=== PATIENT | female | born 1990 | race Caucasian/White ===

== ENCOUNTER 2021-09-17 14:43 | Outpatient (CLI) | payer OTHER, SELFPAY ==
--- NOTE | ~2021-09-17 | US_ITS ---
US breast BI complete DATE: 09/17/2021 15:16 INDICATION: Bilateral breast pain TECHNIQUE: Complete ultrasound of both breasts including all 4 quadrants and subareolar areas COMPARISON: None FINDINGS: No suspicious mass or shadowing, cyst or other significant sonographic finding of either br east is noted. IMPRESSION: BI-RADS Category 1: Negative Reviewed, dictated and finalized at Location A. Reviewed, dictated and finalized at location A.
== END 2021-09-17 14:44 | disposition home or self-care (01) ==
LOC: ANHIMG 14:46
PROVIDERS: Visit Provider Obstetrics & Gynecology
DX: N64.4 Mastodynia (principal)
CPT/HCPCS: 76641

== ENCOUNTER 2023-05-13 13:59 | Observation (INO) | payer OTHER, SELFPAY ==
--- NOTE | 2023-05-13 14:10 | OBADM ---
This patient, Alejandra Melvin, admitted to the OB room Labor/Delivery/Recovery 105 for observation. Patient/family oriented to hospital policies and general routines including ID bracelet, bed and alarms, visiting hours, pain management, procedures, bathroom and other care routines, personal items, smoking policy, room service/diet, and visiting hours. Patient/Family are encouraged to report perceived risks to care and to ask questions if they do not understand what they are told or what they should do.
[2023-05-13 14:15] VITALS: BP 136/84; PULSE 96
[2023-05-13 14:30] VITALS: BP 132/87; PULSE 86
[2023-05-13 14:45] VITALS: BP 125/88; PULSE 89
[2023-05-13 15:00] VITALS: BP 125/87; PULSE 84
[2023-05-13 15:15] VITALS: BP 123/82; PULSE 81
--- NOTE | 2023-05-28 02:22 | PM.OBTRLD ---
OB - Triage/Final Diagnosis Visit Information Comments/Additional reasons for admission: I have assessed the risk for this patient, Alejandra Melvin, and determined that she would benefit from observation care. Final Diagnosis (1) False labor: Code(s): O47.9 - False labor, unspecified Status: Acute
== END 2023-05-13 17:03 | disposition home or self-care (01) ==
PROVIDERS: Admitting Provider Obstetrics & Gynecology; PCP Internal Medicine; Visit Provider Obstetrics & Gynecology
DX: O47.1 False labor at or after 37 completed weeks of gestation (principal); Z3A.38 38 weeks gestation of pregnancy
CPT/HCPCS: G0378; G0379

== ENCOUNTER 2023-05-17 22:39 | Observation (INO) | payer OTHER, SELFPAY ==
[2023-05-18 00:41] VITALS: BMI 37.7
--- NOTE | 2023-05-18 00:41 | OBADM ---
This patient, Alejandra Melvin, admitted to the OB room Labor/Delivery/Recovery 106 for observation. Patient/family oriented to hospital policies and general routines including ID bracelet, bed and alarms, visiting hours, pain management, procedures, bathroom and other care routines, personal items, smoking policy, room service/diet, and visiting hours. Patient/Family are encouraged to report perceived risks to care and to ask questions if they do not understand what they are told or what they should do.
--- NOTE | 2023-05-18 07:15 | PM.OBTRLD ---
OB - Triage/Final Diagnosis Visit Information Date of evaluation: 05/17/23 Reason for evaluation: threatened labor Comments/Additional reasons for admission: I have assessed the risk for this patient, Alejandra Melvin, and determined that she would benefit from observation care.
== END 2023-05-18 00:51 | disposition home or self-care (01) ==
PROVIDERS: Admitting Provider Obstetrics & Gynecology; PCP Internal Medicine; Visit Provider Obstetrics & Gynecology
DX: O47.1 False labor at or after 37 completed weeks of gestation (principal); Z3A.39 39 weeks gestation of pregnancy
CPT/HCPCS: G0378; G0379

== ENCOUNTER 2023-05-28 11:40 | Outpatient (RCR) | payer OTHER, SELFPAY ==
--- NOTE | ~2023-05-28 | US_ITS ---
EXAMINATION: US OB limited DATE: 05/28/2023 12:56 INDICATION: Amniotic fluid index assessment, postdates TECHNIQUE: Real-time ultrasound of the pelvis was performed. The interpreting radiologist was not pre sent for the study. COMPARISON: None. FINDINGS: There is a single living fetus in vertex presentation. The placenta is posterior. car diac activity and movement are noted. heart rate is 131 beats per minute (bpm). The amnio tic fluid index is 9.2 cm which is normal (normal range: 7.1 cm to 21.4 cm). IMPRESSION: 1. Single living fetus in vertex presentation. 2. Normal amniotic fluid index. Reviewed, dictated and finalized at location L.
[2023-05-28 13:13] VITALS: BP 139/91; PULSE 81
== END 2023-07-13 12:43 | disposition home or self-care (01) ==
LOC: ANHOBOP 11:40
PROVIDERS: PCP Internal Medicine; Visit Provider Obstetrics & Gynecology
DX: O48.0 Post-term pregnancy (principal); Z3A.40 40 weeks gestation of pregnancy
CPT/HCPCS: 59025; 76815

== ENCOUNTER 2023-06-02 02:36 | Inpatient (IN) | payer OTHER, SELFPAY ==
[2023-06-02] VITALS (128 sets, daily range): BP systolic 92–157; BP diastolic 40–136; PULSE 74–125; RESP 15–18; TEMP 36.1–37.5; O2SAT 97–100; BMI 38.7
--- NOTE | 2023-06-02 03:22 | LDADM ---
This patient, Alejandra Melvin, was admitted to Labor/Delivery/Recovery 106 on 06/02/23 at 02:36. Plans for labor, pain management and were discussed with patient. Patient/family oriented to hospital policies and general routines including ID bracelet, bed and alarms, visiting hours, pain management, procedures, bathroom and other care routines, personal items, smoking policy, room service/diet and guest tray routines, security routines, and visiting hours. Patient/Family are encouraged to report perceived risks to care and to ask questions if they do not understand what they are told or what they should do. See OBIX for further documentation.
[2023-06-02 03:35] LABS: Basophils Absolute Auto 0.1 K/mm3 (0.0-0.1); Basophils Percent Auto 0.5 % (0.2-1.2); Eosinophils Absolute Auto 0.1 K/mm3 (0-0.3); Eosinophils Percent Auto 1.3 % (0-4.4); Hematocrit 37.2 % (37.0-47.0); Hemoglobin 12.7 g/dL (12.0-15.0); Immature Granulocyte Absolute 0.03 K/mm3 (0.00-0.031); Immature Granulocyte Percent A 0.3 % (0-0.5); Lymphocytes Absolute Auto 3.24 K/mm3 (0.9-3.2); Lymphocytes Percent Auto 30.4 % (18.3-44.2); Mean Corpuscular HGB Conc 34.1 g/dl (32-36); Mean Corpuscular Hemoglobin 30.9 pg (26-34); Mean Corpuscular Volume 90.5 fl (80-100); Mean Platelet Volume 11.3 fl (7.4-10.4); Monocytes Absolute Auto 0.7 K/mm3 (0.1-0.6); Monocytes Percent Auto 6.1 % (2.6-8.5); Neutrophils Absolute Auto 6.5 K/mm3 (1.3-6.7); Neutrophils Percent Auto 61.4 % (45.5-73.1); Platelet Count Result 237 k/mm3 (150-375); Red Blood Count 4.11 M/mm3 (4.2-5.4); White Blood Count 10.7 K/mm3 (4.5-10.0)
[2023-06-02] MEDS: LACTATED RINGERS 1,000 ML 125 ML IV CONT ×2 (03:58→07:45)
[2023-06-02] MEDS: ceFAZolin 2 GM/D5W 50 ML 2 GM/50 ML BAG IVPB (04:00)
--- NOTE | 2023-06-02 06:50 | WPDANESEPP ---
Anes - Eval Pre Procedure Procedure: labor epidural Date/Time: 06/02/23 06:50 Pre Op Diagnosis: leaking Patient Data Age: 32 Gender: F Height: Weight: Last Vital Signs Temp 36.6 C 06/02/23 04:00 Pulse 94 06/02/23 06:45 Resp 18 06/02/23 04:00 BP 154/89 H 06/02/23 06:45 Pulse Ox 100 06/02/23 06:48 O2 Del Method Room Air 06/02/23 03:20 Allergies Allergy/AdvReac Type Severity Reaction Status Date / Time Penicillins Allergy HIVES,TIGHT Verified 04/24/23 13:44 THROAT Sulfa (Sulfonamide Allergy HIVES Verified 04/24/23 13:44 Antibiotics) TIGHT THROAT Home Medications Medication Instructions Recorded Confirmed Type albuterol sulfate 90 mcg/actuation 2 puff inhalation QID PRN Wheezing 04/24/23 04/24/23 History aerosol inhaler prenat.vits,jonathon,[id number] 1 tablet PO DAILY 04/24/23 04/24/23 History Laboratory Tests 06/02/23 03:13 WBC 10.7 H K/mm3 (4.5-10.0) RBC 4.11 L M/mm3 (4.2-5.4) Hgb 12.7 g/dL (12.0-15.0) Hct 37.2 % (37.0-47.0) MCV 90.5 fl (80-100) MCH 30.9 pg (26-34) MCHC 34.1 g/dl (32-36) RDW 14.0 % (11.5-14.5) Plt Count 237 k/mm3 (150-375) MPV 11.3 H fl (7.4-10.4) Immature Gran % (Auto) 0.3 % (0-0.5) Neut % (Auto) 61.4 % (45.5-73.1) Lymph % (Auto) 30.4 % (18.3-44.2) [place] % (Auto) 6.1 % (2.6-8.5) Eos % (Auto) 1.3 % (0-4.4) Baso % (Auto) 0.5 % (0.2-1.2) Lymph # (Auto) 3.24 H K/mm3 (0.9-3.2) [place] # (Auto) 0.7 H K/mm3 (0.1-0.6) Eos # (Auto) 0.1 K/mm3 (0-0.3) Baso # (Auto) 0.1 K/mm3 (0.0-0.1) Abs Immat Gran (auto) 0.03 K/mm3 (0.00-0.031) Absolute Neuts (auto) 6.5 K/mm3 (1.3-6.7) Absolute Nucleated RBC 0.0 K/mm3 (0.0-0.012) Nucleated RBC % 0.0 % (0.0-0.2) RPR Pending Blood Type O Positive Antibody Screen Negative Patient hx anesthesia problems: none Family hx anesthesia problems: none Results Review: All pre-operative results and documents have been reviewed as part of the pre-operative evaluation. [facility] Past Medical History Medical History (Updated 06/02/23 @ 06:51 by Constance Feliz CRNA) Asthma Eczema Irregular heart beat Migraine Family History Family History Sibling Neoplasm of brain in pediatric patient Seizures Social History Social History Smoking status: Never smoker Substance use: never Lack of Transportation: No Lack of Food: Never True Current Housing: I Have Housing Concerned About Future Housing: No Difficulty Paying Gas/Electric Bills: No Difficulty Paying for Meds: No Currently Unemployed: No Education: Associate Degree Difficulty w/ Childcare or Family Care: No Spiritual care concerns: No Exam Day of Procedure 06/02/23 06:50 Patient weight: obese Heart: regular rate and rhythm Lungs: clear to auscultation Airway: Mallampati scale Neurological: alert and oriented
[2023-06-02] MEDS: SODIUM CHLORIDE 0.9% IV 300 ML 600 ML I-UTERINE (08:03)
[2023-06-02] MEDS: TERBUTALINE SULFATE 1 MG/ML VIAL 0.25 MG SUB-Q (08:40)
--- NOTE | 2023-06-02 09:29 | PM.IMHP ---
H&P: HPI History of Present Illness Date/Time: 06/02/23 09:29 Chief Complaint: Ashanti shipman Narrative: 32 y/o G1 at 41 3/7 weeks who presented after a gush of fluid. SROM with meconium-stained fluid noted, labor diagnosed. She received an epidural for pain control and Ancef for GBS colonization. Now having FHR decelerations which have not responded adequately to IVF, position change, amnioinfusion, and terbutaline. I have offered primary . Review of Systems Review of Systems: All systems reviewed & are unremarkable except as noted in HPI and below PMFSH Past Medical History Medical History (Updated 06/02/23 @ 09:33 by Pb Sánchez MD) Asthma Eczema Irregular heart beat Migraine Surgical History Surgical History History of appendectomy Family History Family History Sibling Neoplasm of brain in pediatric patient Seizures Social History Social History Smoking status: Never smoker Substance use: never Lack of Transportation: No Lack of Food: Never True Current Housing: I Have Housing Concerned About Future Housing: No Difficulty Paying Gas/Electric Bills: No Difficulty Paying for Meds: No Currently Unemployed: No Education: Associate Degree Difficulty w/ Childcare or Family Care: No Spiritual care concerns: No Meds Home Medications and Allergies Home Medications Medication Instructions Recorded Confirmed Type albuterol sulfate 90 mcg/actuation 2 puff inhalation QID PRN Wheezing 04/24/23 04/24/23 History aerosol inhaler prenat.vits,jonathon,[id number] 1 tablet PO DAILY 04/24/23 04/24/23 History Allergies Allergy/AdvReac Type Severity Reaction Status Date / Time Penicillins Allergy HIVES,TIGHT Verified 04/24/23 13:44 THROAT Sulfa (Sulfonamide Allergy HIVES Verified 04/24/23 13:44 Antibiotics) TIGHT THROAT Vital Signs Vital Signs - 24 hr 06/02/23 03:30 06/02/23 03:31 06/02/23 04:00 Temperature 36.6 C Pulse Rate 84 84 Respiratory Rate 18 Blood Pressure 151/96 H 143/98 H 149/118 H Pulse Oximetry Oxygen Delivery 06/02/23 04:02 06/02/23 04:15 06/02/23 04:18 Temperature Pulse Rate 90 88 83 Respiratory Rate Blood Pressure 150/89 H 156/95 H 143/91 H Pulse Oximetry Oxygen Delivery 06/02/23 04:30 06/02/23 04:45 06/02/23 05:00 Temperature Pulse Rate 113 H 91 74 Respiratory Rate Blood Pressure 154/98 H 135/88 145/97 H Pulse Oximetry Oxygen Delivery 06/02/23 05:15 06/02/23 05:30 06/02/23 05:45 Temperature Pulse Rate 75 104 H 94 Respiratory Rate Blood Pressure 141/106 H 150/104 H 133/96 H Pulse Oximetry Oxygen Delivery 06/02/23 06:00 06/02/23 06:15 06/02/23 06:30 Temperature Pulse Rate 89 90 78 Respiratory Rate Blood Pressure 128/89 125/93 H 131/85 Pulse Oximetry Oxygen Delivery 06/02/23 06:45 06/02/23 06:48 06/02/23 06:52 Temperature Pulse Rate 94 104 H Respiratory Rate Blood Pressure 154/89 H 142/101 H Pulse Oximetry 100 Oxygen Delivery 06/02/23 06:53 06/02/23 06:58 06/02/23 07:03 Temperature Pulse Rate 97 Respiratory Rate Blood Pressure 142/102 H Pulse Oximetry 99 100 99 Oxygen Delivery 06/02/23 07:07 06/02/23 07:08 06/02/23 07:09 Temperature Pulse Rate 88 98 Respiratory Rate Blood Pressure 133/91 H 150/90 H Pulse Oximetry 98 Oxygen Delivery 06/02/23 07:11 06/02/23 07:13 06/02/23 07:14 Temperature Pulse Rate 89 83 99 Respiratory Rate Blood Pressure 135/85 129/79 131/94 H Pulse Oximetry 99 Oxygen Delivery 06/02/23 07:16 06/02/23 07:18 06/02/23 07:20 Temperature Pulse Rate 97 101 H 98 Respiratory Rate Blood Pressure 132/77 129/83 128/74 Pulse Oximetry 99 Oxygen Delivery
[2023-06-02] MEDS: AZITHROMYCIN 500 MG/NS 250 ML 500 MG/250 ML BAG 250 MG IVPB (09:30)
--- NOTE | 2023-06-02 09:33 | WPDHPUPDATE1 ---
History and Physical Update Update Date/Time: 06/02/23 09:33 History and Physical has been reviewed, including an updated exam of the patient. There are NO changes in the patient's condition. Risks, benefits, and alternatives have been discussed and questions answered. Patient agrees to proceed with procedure.
[2023-06-02] MEDS: ONDANSETRON INJ 4 MG/2 ML VIAL IV PUSH ×2 (09:59→18:30)
--- NOTE | 2023-06-02 10:17 | PM.OBPRVD ---
OB - Delivery Note Procedure Delivery date: 06/02/23 Procedure: Procedures Operation Date: 06/02/23 09:30 <No data on this case meets the specified criteria> Primary low transverse delivery Intrapartal Events: Non-Reassuring Status Delivery monitor: External FHT, External Uterine and Internal Uterine Route of delivery: Specimen: Yes (cord blood, placenta) Quantitative Blood Loss (ml): 220 Anesthesia type: Epidural Disposition: PACU Complications: None Narrative: The patient was taken to the operating room where she was prepared and draped in the usual sterile fashion in dorsal supine position with a leftward tilt. She received cefazolin and azithromycin preoperatively. Epidural anesthesia was found to be adequate. A Pfannenstiel skin incision was made and carried through to the underlying layer of the fascia. The fascia was incised in the midline and the incision was extended laterally. The fascia was dissected free of the underlying rectus muscles. The rectus muscles were in the midline. The peritoneum was identified, tented up and entered sharply. The peritoneal incision was extended superiorly and inferiorly with good visualization of the bladder. The bladder blade was placed. The vesicouterine peritoneum was identified, tented up and entered sharply. The incision was extended laterally and the bladder flap was developed. The bladder blade was replaced. The uterus was then incised sharply in a transverse fashion along the lower uterine segment. The incision was extended laterally. The infant's head was delivered atraumatically to the sterile field, followed by the body. The nose and mouth were bulb suctioned. After a delay, the cord was clamped and cut. The was handed off the field. Cord blood was collected. The placenta was removed manually and was passed off the field. The uterus was exteriorized and cleared of all clots and debris. The uterine incision was reapproximated using 0 Monocryl in a running, locked fashion. Excellent hemostasis resulted as did excellent reapproximation of the normal anatomy. The uterus was returned the abdomen. The pelvis was irrigated copiously with warmed normal saline. Rigorous hemostasis was assured. The fascial layer was reapproximated using 0 Vicryl in a running fashion. The skin was closed with a running, subcuticular stitch of 4 0 Vicryl. Dermaflex was applied externally. Sponge, lap, needle and instrument counts were correct. The patient was taken to the recovery room in stable condition. The infant went to the nursery in stable condition. I was present and scrubbed the entire procedure. Baby Date of : 06/02/23 Time of : 09:51 Weeks of gestation at delivery: 41 Infant gender: Female Weight (pounds): 6 Weight (ounces): 12 presentation: vertex Placenta delivery description: Manual Removal and Normal Configuration Cord Vessel Description: 3 Vessels and Delayed Cord Clamping score one minute: 9 score five minutes: 9
--- NOTE | 2023-06-02 10:20 | PM.OBDSVD ---
DS: Admitting Diagnosis Discharge Date 06/05/23 Admitting Diagnosis IUP at 41 3/7 weeks SROM GBS colonization DS: Discharge Diagnosis Discharge Diagnosis (1) delivery delivered: Code(s): O82 - Encounter for delivery without indication Status: Acute (2) GBS (group B streptococcus) UTI complicating : Code(s): O23.40 - Unspecified infection of urinary tract in , unspecified trimester; B95.1 - Streptococcus, group B, as the cause of diseases classified elsewhere Status: Acute (3) Non-reassuring electronic monitoring tracing: Code(s): O36.8390 - Maternal care for abnormalities of the heart rate or rhythm, unspecified trimester, not applicable or unspecified Status: Acute OB - DS: Summary OB Procedures : None OB Procedures Intrapartum: OB Procedures: : None Peripartum Data Procedures: Procedures Operation Date: 06/02/23 09:30 <No data on this case meets the specified criteria> Time Spent with Patient Time attestation: Total time spent providing and/or coordinating discharge services: DS: Data Data Completed and Pending Labs on day of discharge: Labs from last 24 hours 06/02/23 03:13 WBC 10.7 H RBC 4.11 L Hgb 12.7 Hct 37.2 MCV 90.5 MCH 30.9 MCHC 34.1 RDW 14.0 Plt Count 237 MPV 11.3 H Immature Gran % (Auto) 0.3 Neut % (Auto) 61.4 Lymph % (Auto) 30.4 [place] % (Auto) 6.1 Eos % (Auto) 1.3 Baso % (Auto) 0.5 Lymph # (Auto) 3.24 H [place] # (Auto) 0.7 H Eos # (Auto) 0.1 Baso # (Auto) 0.1 Abs Immat Gran (auto) 0.03 Absolute Neuts (auto) 6.5 Absolute Nucleated RBC 0.0 Nucleated RBC % 0.0 RPR Pending Blood Type O Positive Antibody Screen Negative Discharge Plan Discharge Attending physician on discharge: Pb Sánchez Consulting providers: Jamar Hamilton; Constance Feliz Discharging Clinician: Pb Sánchez Patient Disposition: Home, Self-Care Activity: may shower and may drive after 2 weeks Diet: regular Wound Care Instructions: incision open to air Discharge Instructions: Education: Mom and Baby Guide Given to: Mother Follow-Up: Call your delivering provider's office for an appointment to be seen in: 1 Week Mom and baby should come to the [facility] for the follow-up appointment. Appointment Date/Time: June 06, 2023 at 9:00 am What to expect at your follow-up visit: Blood Pressure Check Call [phone] if you are unable to keep your appointment time. BREAST CARE: * Wear a snug supportive bra. * For engorgement discomfort: Breast Feeding: * Apply warm moist washcloths * Express milk as needed to relieve engorgement * Wear loose clothing * For sore nipples: * Identify correct latch-on * Apply warm moist washcloths before and after nursing * Air dry nipples after nursing * May apply Lansinoh cream to nipples ABDOMINAL INCISION: (if applicable) * Allow incision to air dry * Do NOT use lotions for powders on your incision * When showering, allow soap and water to run over the incision, but do not wash incision PERINEAL CARE: * Until bleeding stops, use your melissa bottle after urinating * Change your pad frequently throughout the day * No tub baths until seen by your physician - You may shower ACTIVITY: * Rest as much as possible. * Do not exercise or lift anything heavier than your baby (such as laundry or other children.) * Avoid stairs or driving as much as possible. * Do not put anything into the vagina. No douching, tampons, or sexual activity until seen by physician. NOTIFY PHYSICIAN IF YOU HAVE ANY QUESTIONS OR IF ANY OF THE FOLLOWING SYMPTOMS OCCUR: * If your incision becomes red, swollen, or more painful than what you have experienced in the hospital. * If your vaginal bleeding becomes foul smelling.
[2023-06-02] MEDS: KETOROLAC 30 MG/ML VIAL (*BKC) IV PUSH ×2 (10:23→16:20)
[2023-06-02] MEDS: OXYTOCIN 30 UNITS/NS 500 ML 30 UNITS/500 ML BAG 999 UNITS IV CONT (11:00)
[2023-06-02] MEDS: OXYTOCIN 30 UNITS/NS 500 ML 30 UNITS/500 ML BAG 125 UNITS IV CONT (12:45)
--- NOTE | 2023-06-02 12:58 | OBPPTRN ---
Patient transferred to post room # 282 via stretcher and moved to bed via maxi air. PT accompanied by spouse and infant. PT introductions made and plan and plan of care discussed per post op c section, pain management, breast feeding, and daily care activities. PT and spouse both recipients of such instructions and no barriers to learning identified at this time. PT received such instructions via one to one discussion , mom baby care guide and demonstrations. Oriented to unit, room, information board, rooming in, admission packet and security measures. Patient verbalizes understanding.
[2023-06-02] MEDS: DOCUSATE SODIUM 100 MG CAPSULE PO (16:18)
[2023-06-02] MEDS: HYDROcodone/acetaminophen (*CRX) 5-325 MG TABLET 1 TAB PO (16:19)
[2023-06-02] MEDS: SIMETHICONE 80 MG TAB.CHEW PO (16:20)
[2023-06-02] MEDS: LANOLIN (LANSINOH) 7.5 GM CREAM 1 APPLIC TOPICAL (16:21)
[2023-06-02] MEDS: DEXTROSE 5%/0.45% SOD CHL 1,000 ML 125 ML IV CONT (17:00)
[2023-06-03 05:39] LABS: Basophils Percent Auto 0.3 % (0.2-1.2); Eosinophils Percent Auto 0.3 % (0-4.4); Hematocrit 28.4 % (37.0-47.0); Hemoglobin 9.6 g/dL (12.0-15.0); Immature Granulocyte Absolute 0.04 K/mm3 (0.00-0.031); Immature Granulocyte Percent A 0.3 % (0-0.5); Lymphocytes Absolute Auto 1.74 K/mm3 (0.9-3.2); Lymphocytes Percent Auto 14.5 % (18.3-44.2); Mean Corpuscular HGB Conc 33.8 g/dl (32-36); Mean Corpuscular Hemoglobin 31.7 pg (26-34); Mean Corpuscular Volume 93.7 fl (80-100); Mean Platelet Volume 10.8 fl (7.4-10.4); Monocytes Absolute Auto 0.6 K/mm3 (0.1-0.6); Monocytes Percent Auto 5.1 % (2.6-8.5); Neutrophils Absolute Auto 9.5 K/mm3 (1.3-6.7); Neutrophils Percent Auto 79.5 % (45.5-73.1); Platelet Count Result 170 k/mm3 (150-375); Red Blood Count 3.03 M/mm3 (4.2-5.4); Red Cell Distribution Width 14.6 % (11.5-14.5)
--- NOTE | 2023-06-03 06:30 | WPDANLDPN2 ---
Anes-Prog Note L&D Date/Time: 06/03/23 06:30 Comfortable throughout: section Neuraxial method: epidural Epidural/Spinal procedure site: clean & non-tender Neuro status: Neuro function grossly intact. Cardiovascular status: normal Respiratory status: normal Airway patency: baseline Mental status: baseline and other (pt sitting up in bed smiling holding baby, no C/O SHA ) Post-Op hydration status: normal Vital Signs: Last Vital Signs Temp 37.1 C 06/02/23 23:32 Pulse 84 06/02/23 23:32 Resp 16 06/02/23 23:32 BP 127/81 06/02/23 23:32 Pulse Ox 99 06/02/23 23:32 O2 Del Method Room Air 06/02/23 23:32 Pain score (VAS): no C/O pain I/O: Intake & Output 06/02/23 06/02/23 06/03/23 15:59 23:59 07:59 Intake Total 1200 3100 800 Output Total 670 1050 1750 Balance 530 3950 -950 Patient feedback: Patient satisfied with anesthetic care.
--- NOTE | 2023-06-03 06:32 | WPDANLDNPN2 ---
Anes-Prog Note L&D-Neuraxial Date/Time: 06/03/23 06:32 Neuraxial medications: epidural PF morphine Opiod-related complaints: none Patient feedback: Patient satisfied with post-operative pain management.
[2023-06-03 07:11] LABS: Rapid Plasma Reagin Non-Reactive (NonReactive)
--- NOTE | 2023-06-03 08:00 | PC.NURSE ---
PT introductions made and plan and plan of care discussed per post op c section, pain management, breast feeding, and daily care activities. PT and spouse both recipients of such instructions and no barriers to learning identified at this time. PT received such instructions via one to one discussion , mom baby care guide and demonstration. Patient verbalizes understanding.
[2023-06-03] MEDS: SIMETHICONE 80 MG TAB.CHEW PO ×3 (08:28→18:21)
[2023-06-03] MEDS: HYDROcodone/acetaminophen (*CRX) 5-325 MG TABLET 1 TAB PO ×5 (08:29→21:41)
[2023-06-03 08:30] VITALS: BP 124/81; PULSE 105; RESP 18; TEMP 37.7; O2SAT 99
[2023-06-03] MEDS: DOCUSATE SODIUM 100 MG CAPSULE PO ×2 (08:30→18:20)
[2023-06-03] MEDS: POLYSACCHARIDE IRON COMPLEX 150 MG CAPSULE PO ×2 (08:30→18:21)
[2023-06-03] MEDS: IBUPROFEN 600 MG TABLET PO ×3 (08:30→21:36)
--- NOTE | 2023-06-03 08:56 | P.PNOB_ITS ---
OB - PN: Subj Subjective Date/time seen: 06/03/23 08:56 Narrative: Pain OK. Tolerating diet. OB - PN: Obj Data Labs 06/03/23 05:14 Labs: Laboratory Results - last 24 hr 06/02/23 06/03/23 03:13 05:14 WBC 12.0 H RBC 3.03 L Hgb 9.6 L D Hct 28.4 L MCV 93.7 MCH 31.7 MCHC 33.8 RDW 14.6 H Plt Count 170 MPV 10.8 H Immature Gran % (Auto) 0.3 Neut % (Auto) 79.5 H Lymph % (Auto) 14.5 L [place] % (Auto) 5.1 Eos % (Auto) 0.3 Baso % (Auto) 0.3 Lymph # (Auto) 1.74 [place] # (Auto) 0.6 Eos # (Auto) 0.0 Baso # (Auto) 0.0 Abs Immat Gran (auto) 0.04 H Absolute Neuts (auto) 9.5 H Absolute Nucleated RBC 0.0 Nucleated RBC % 0.0 RPR Non-reactive OB - PN A/P Plan day: 1 Comments: A: POD#1, doing well. P: Routine care. Exam Narrative: AVSS I/O OK ABD soft, nontender, fundus firm. Incision c/d/i. EXT nontender
--- NOTE | 2023-06-03 13:08 | PC.NURSE ---
[phone] Primary RN is present in the room changing the bed and mother is in the shower. Introductions were made to the visitors and name was written on the communication board and a reminder to call if mother is having pain with a latch or difficulty latching infant.
[2023-06-03 16:00] VITALS: BP 140/82; PULSE 104; RESP 18; TEMP 36.8; O2SAT 99
[2023-06-03 20:00] VITALS: BP 140/93; PULSE 74; RESP 18; TEMP 36.6; O2SAT 99
[2023-06-04] MEDS: IBUPROFEN 600 MG TABLET PO ×3 (03:39→17:46)
[2023-06-04] MEDS: HYDROcodone/acetaminophen (*CRX) 5-325 MG TABLET 1 TAB PO ×6 (03:39→20:47)
[2023-06-04 07:15] VITALS: BP 112/84; PULSE 94; RESP 16; TEMP 36.8; O2SAT 98
[2023-06-04] MEDS: POLYSACCHARIDE IRON COMPLEX 150 MG CAPSULE PO ×2 (07:23→17:46)
[2023-06-04] MEDS: DOCUSATE SODIUM 100 MG CAPSULE PO ×2 (07:24→17:46)
--- NOTE | 2023-06-04 08:55 | PM.OBPNVD ---
OB - PN: Subj Subjective Date/time seen: 06/04/23 08:55 Narrative: Pain OK. Tolerating diet. OB - PN: Obj Data Labs 06/03/23 05:14 OB - PN A/P Plan Comments: A: POD#2, doing well. P: Routine care. Exam Narrative: AVSS I/O OK ABD soft, nontender, fundus firm. Incision c/d/i. EXT nontender
--- NOTE | 2023-06-04 15:28 | PC.NURSE ---
[phone] Mother is going to eat her lunch, then call out for assistance with . [phone] Consulted with patient to assess needs related to after being requested. Mother led the conversation with her?plans to feed?her and the?experience so far. Mother works well with her with encouragement and education. Encouraged understanding of the benefits of skin to skin (demonstrating unwrapping and placing upright on her chest), stimulating with massage touch, changing positions to encourage wakefulness, how to watch for early feeding cues, responsive feeding, feeding on demand (aiming for 8-12 times in 24 hours, about every 2-3 hours), milk production, building/maintaining a milk supply, duration of feeding, signs of adequate intake/output and how to record on the feeding sheet. Reviewed positioning and ear, shoulder, hip alignment, supporting the breast to facilitate a deep latch, asymmetrical latch (off-center), leading with the chin with a big, open, wide gape and body close to mother. Infant latched optimally to the left breast in cross cradle position. Education given to mother of how to visualize suck/swallow ratios and listen for drinking at the breast. was able to maintain latch without discomfort to mother. Nipple care reviewed with optimal latch and good positioning. Reminding mother of comfort measures of healing with a warm and wet washcloth to rinse breast, then leave open to air-dry as needed. Reviewed good handwashing when or touching the breast/nipples to prevent infection. Prevention and treatment of engorgement as mother's milk has increased to full volume. Infant has multiple 1:1 ratios of suck/swallowing. Resources used to facilitate learning were used with the tool, mom and baby guide. Mother voiced understanding of skin to skin, stimulating with massage touch, responsive feedings, hand expressed colostrum, talking to to encourage if it has been 2 -2.5 hours since the start of the last , to call if infant does not latch, or if there is discomfort with . Resources provided for inpatient/outpatient with the mom/baby guide. Parents voiced understanding of information, demonstrated learning and will call if there is a request for assistance. Reported to the Primary RN. Mother received a Zomee breast pump through [employer]. Instructions given on cleaning, care, usage, that there should be no pain, pumping schedule for milk production, collection, and storage of human milk. Patient was assessed for correct placement, flange size, to pump for comfort and removing milk for storage at a later date. Mother voiced understanding of the education shared along with mom and baby guide and business card with CDC guidelines for storing milk for additional resource information. Reported to the primary RN.
[2023-06-04 23:45] VITALS: BP 143/85; PULSE 75; RESP 16; RESP 18; TEMP 36.6; O2SAT 97
[2023-06-05] MEDS: IBUPROFEN 600 MG TABLET PO ×2 (00:25→08:29)
[2023-06-05] MEDS: HYDROcodone/acetaminophen (*CRX) 10-325 MG TABLET 1 TAB PO ×3 (00:26→08:30)
[2023-06-05 03:45] VITALS: BP 143/91; PULSE 70
--- NOTE | 2023-06-05 06:52 | PM.OBPNVD ---
OB - PN: Subj Subjective Date/time seen: 06/05/23 06:52 Patient comments: no complaints and pain well controlled baby status: doing well OB - PN: Obj Data Labs 06/03/23 05:14 OB - PN A/P Plan day: 3 Plan: routine care, discharge home and follow up 6 weeks (4) Time Spent With Patient Time: Total time spent is greater than 50% in coordination of care (as documented) at patient's floor/unit and/or counseling patient: Time with patient: less than 15 minutes Exam Const: General: cooperative, healthy appearing and comfortable Nutritional Appearance: average body habitus Orientation/consciousness: oriented to person, oriented to place and oriented to time HENMT: Head: normal to inspection Resp: Effort & Inspection: normal respiratory effort Cardio: Rate: regular rate Rhythm: regular rhythm Heart sounds: S1 normal heart sound present and S2 normal heart sound present GI: Inspection: normal to inspection and incision ( clean dry and intact)
[2023-06-05 07:20] VITALS: BP 134/87; PULSE 87; RESP 17; TEMP 36.7; O2SAT 96
[2023-06-05] MEDS: SIMETHICONE 80 MG TAB.CHEW PO (08:29)
[2023-06-05] MEDS: POLYSACCHARIDE IRON COMPLEX 150 MG CAPSULE PO (08:29)
[2023-06-05] MEDS: DOCUSATE SODIUM 100 MG CAPSULE PO (08:29)
[2023-06-05 08:30] VITALS: PULSE 87; RESP 17; O2SAT 96
--- NOTE | 2023-06-05 08:30 | PC.NURSE ---
PT introductions made and plan and plan of care discussed per post op c section, pain management, breast feeding, and daily care activities and pending discharge to home. PT and spouse both recipients of such instructions and no barriers to learning identified at this time. PT received such instructions via one to one discussion , mom baby care guide and demonstration. Patient verbalizes understanding.
--- NOTE | 2023-06-05 12:30 | PC.NURSE ---
PT discharged to home ambulatory accompanied by spouse and and taken to waiting car. Follow up appts confirmed
[2023-06-06 09:33] VITALS: BP 139/93; PULSE 73; RESP 18; TEMP 36.3; O2SAT 100
== END 2023-06-05 12:30 | disposition home or self-care (01) | DRG 788 ==
LOC: ANHLDR 10:21 → ANHOB2 13:03
PROVIDERS: Admitting Provider Obstetrics & Gynecology; PCP Internal Medicine; Visit Provider Obstetrics & Gynecology
PROC: 10D00Z1 Extraction of Products of Conception, Low, Open Approach (ICD-10-PCS; CPT 59514; principal; 2023-06-02 09:30)
DX: O36.8330 Maternal care for abnormalities of the fetal heart rate or rhythm, third trimester, not applicable or unspecified (principal); O99.824 Streptococcus B carrier state complicating childbirth; Z37.0 Single live birth; Z3A.41 41 weeks gestation of pregnancy; O77.0 Labor and delivery complicated by meconium in amniotic fluid
CPT/HCPCS: 36415; 85025; 86592; 86850; 86900; 86901; 88307; A9270; J0456; J0690; J1100; J1885; J2274; J2405; J2590; J2795; J3105; J7030; J7120

== ENCOUNTER 2024-01-22 15:25 | Emergency (ER) | payer OTHER, SELFPAY ==
[2024-01-22 15:33] VITALS: BP 124/89; PULSE 93; RESP 19; TEMP 36.7; O2SAT 100
--- NOTE | 2024-01-22 16:18 | PC.NURSE ---
pt lwbs, d/t wait time
== END 2024-01-22 17:41 | disposition left against medical advice (07) ==
LOC: ANHED 16:54
PROVIDERS: PCP Internal Medicine
DX: R10.31 Right lower quadrant pain (principal)
CPT/HCPCS: 99199

== ENCOUNTER 2024-09-12 13:02 | Outpatient (CLI) | payer OTHER, SELFPAY ==
[2024-09-12 13:50] LABS: Hematocrit 33.5 % (37.0-47.0); Mean Corpuscular HGB Conc 32.8 g/dl (32-36); Mean Corpuscular Hemoglobin 28.6 pg (26-34); Mean Corpuscular Volume 87.2 fl (80-100); Mean Platelet Volume 10.1 fl (7.4-10.4); Platelet Count Result 291 k/mm3 (150-375); Red Blood Count 3.84 M/mm3 (4.2-5.4); Red Cell Distribution Width 13.6 % (11.5-14.5); White Blood Count 8.7 K/mm3 (4.5-10.0)
[2024-09-12 15:29] LABS: Rapid Plasma Reagin Non-Reactive (NonReactive)
== END 2024-09-12 13:03 | disposition home or self-care (01) ==
LOC: ANHLAB 13:05
PROVIDERS: PCP Internal Medicine; Visit Provider Obstetrics & Gynecology
DX: Z01.812 Encounter for preprocedural laboratory examination (principal)
CPT/HCPCS: 36415; 85027; 86592; 86850; 86900; 86901

== ENCOUNTER 2024-09-13 10:11 | Inpatient (IN) | payer OTHER, SELFPAY ==
[2024-09-13] VITALS (44 sets, daily range): BP systolic 97–121; BP diastolic 54–78; PULSE 48–124; RESP 14–19; TEMP 36.1–36.7; O2SAT 82–100; BMI 34.7
--- NOTE | 2024-09-13 08:47 | PM.IMHP ---
H&P: HPI History of Present Illness Date/Time: 09/13/24 08:47 Chief Complaint: Here for repeat c section Narrative: 33 y/o at 39 3/7 weeks here for repeat . GBS bacteruria in . otherwise uncomplicated. Review of Systems Review of Systems: All systems reviewed & are unremarkable except as noted in HPI and below PMFSH Past Medical History Medical History Asthma Eczema Irregular heart beat Migraine Surgical History Surgical History (Updated 09/13/24 @ 08:49 by Pb Sánchez MD) History of appendectomy History of delivery Family History Family History Sibling Neoplasm of brain in pediatric patient Seizures Social History Social History Smoking status: Never smoker Substance use: never Do You Feel Safe in your Home?: Yes Lack of Transportation: No Lack of Food: Never True Current Housing: I Have Housing Concerned About Future Housing: No Difficulty Paying Gas/Electric Bills: No Difficulty Paying for Meds: No Currently Unemployed: No Education: Associate Degree Difficulty w/ Childcare or Family Care: No Spiritual care concerns: No Meds Home Medications and Allergies Home Medications Medication Instructions Recorded Confirmed Type albuterol sulfate 90 mcg/actuation 2 puff inhalation QID PRN Wheezing 04/24/23 08/30/24 History aerosol inhaler prenat.vits,jonathon,[id number] 1 tablet PO DAILY 04/24/23 08/30/24 History Allergies Allergy/AdvReac Type Severity Reaction Status Date / Time Penicillins Allergy HIVES,TIGHT Verified 08/30/24 14:25 THROAT Sulfa (Sulfonamide Allergy HIVES Verified 08/30/24 14:25 Antibiotics) TIGHT THROAT Exam Const: Orientation/consciousness: patient oriented x3 Other: Well-developed, well-nourished female in no acute distress. Neck: Thyroid: thyroid normal Lymphatic: no lymphadenopathy noted (in neck, axilla or inguinal nodes) Resp: Effort & Inspection: normal respiratory effort Auscultation: clear to auscultation bilaterally Cardio: Rate: regular rate Rhythm: regular rhythm Heart sounds: S1 normal heart sound present and S2 normal heart sound present GI: Other: ABD: Soft, nontender, nondistended, gravid. FHR 150 bpm. No guarding or rebound tenderness. No hepatosplenomegaly. : General: Yes no CVA tenderness Other: Cervix 1/th/-3 Back/Spine/Pelvis: Back: no CVA tenderness Skin: General skin exam: normal color and no rashes or lesions noted Neuro: General: patient oriented x3 Extrem: Other: Extremities: nontender with no edema Psych: Mental Status: mental status grossly normal Affect: normal affect Assessment and Plan Assessment and plan (1) History of delivery: Code(s): Z98.891 - History of uterine scar from previous surgery Status: Acute Assessment and Plan: A: IUP at 39 3/7 weeks with prior . GBS bacteruria. P: Offered repeat . She understands risks of surgery to include risks of anesthesia, risks of pain, infection, bleeding, blood products, thromboembolic phenomena and damage to adjacent structures such as bowel, bladder, ureters, blood vessels and nerves. She understands all these risks and elects to proceed with surgery. (2) Term : Code(s): Z34.90 - Encounter for supervision of normal , unspecified, unspecified trimester Status: Acute
[2024-09-13] MEDS: ACETAMINOPHEN 500 MG TABLET 1000 MG PO (10:42)
[2024-09-13] MEDS: LACTATED RINGERS 1,000 ML 125 ML IV CONT ×2 (10:50→12:01)
--- NOTE | 2024-09-13 10:53 | LDADM ---
This patient, Alejandra Melvin, was admitted to Labor/Delivery/Recovery 120 on 09/13/24 at 10:11. Plans for labor, pain management and were discussed with patient. Patient/family oriented to hospital policies and general routines including ID bracelet, bed and alarms, visiting hours, pain management, procedures, bathroom and other care routines, personal items, smoking policy, room service/diet and guest tray routines, security routines, and visiting hours. Patient/Family are encouraged to report perceived risks to care and to ask questions if they do not understand what they are told or what they should do. See OBIX for further documentation.
[2024-09-13 11:41] LABS: HIV 1/2 Ab P24 Ag Result Negative (Negative)
--- NOTE | 2024-09-13 11:46 | WPDHPUPDATE1 ---
History and Physical Update Update Date/Time: 09/13/24 11:46 History and Physical has been reviewed, including an updated exam of the patient. There are NO changes in the patient's condition. Risks, benefits, and alternatives have been discussed and questions answered. Patient agrees to proceed with procedure.
[2024-09-13] MEDS: FAMOTIDINE 20 MG/2 ML VIAL IV PUSH (11:47)
[2024-09-13] MEDS: ONDANSETRON INJ 4 MG/2 ML VIAL IV PUSH (11:47)
--- NOTE | 2024-09-13 11:53 | P.PNAN_ITS ---
Anes - Initial Pre Proc Eval Procedure: Operation Date: 09/13/24 12:00 Proposed Procedures p Repeat Section - Pb Sánchez MD Date/Time: 09/13/24 11:53 Surgeon: Pb Sánchez MD Pre Op Diagnosis: Repeat C/S Patient Data Age: 33 Gender: F Height: 1.57 m Weight: 86 kg Last Vital Signs Temp 36.6 C 09/13/24 10:52 Pulse 80 09/13/24 10:52 Resp 16 09/13/24 10:52 BP 121/63 09/13/24 10:52 O2 Del Method Room Air 09/13/24 10:52 Allergies Allergy/AdvReac Type Severity Reaction Status Date / Time Penicillins Allergy HIVES,TIGHT Verified 08/30/24 14:25 THROAT Sulfa (Sulfonamide Allergy HIVES Verified 08/30/24 14:25 Antibiotics) TIGHT THROAT Home Medications Medication Instructions Recorded Confirmed Type albuterol sulfate 90 mcg/actuation 2 puff inhalation QID PRN Wheezing 04/24/23 08/30/24 History aerosol inhaler prenat.vits,jonathon,[id number]-[id number] 1 tablet PO DAILY 04/24/23 08/30/24 History Laboratory Tests 09/13/24 10:31 HIV 1&2 Ab/P24 Ag 4thGn Negative (Negative) Patient hx anesthesia problems: none Family hx anesthesia problems: none Results Review: All pre-operative results and documents have been reviewed as part of the pre- operative evaluation. [facility] Past Medical History Medical History Asthma Eczema Irregular heart beat Migraine Surgical History Surgical History History of appendectomy History of delivery Family History Family History Sibling Neoplasm of brain in pediatric patient Seizures Social History Social History Smoking status: Never smoker Substance use: never Do You Feel Safe in your Home?: Yes Lack of Transportation: No Lack of Food: Never True Current Housing: I Have Housing Concerned About Future Housing: No Difficulty Paying Gas/Electric Bills: No Difficulty Paying for Meds: No Currently Unemployed: No Education: Associate Degree Difficulty w/ Childcare or Family Care: No Spiritual care concerns: No Anes - Eval Final PreProcedure Day of Procedure 09/13/24 11:53 Results Review: All pre-operative results and documents have been reviewed as part of the pre- operative evaluation. Informed Consent: The patient's anesthetic plan and its attendant risks and benefits were discussed with the patient/family/POA. Questions were solicited and answers provided to the satisfaction of the patient/family/POA.
--- NOTE | 2024-09-13 11:55 | P.PNAN_ITS ---
Anes - Initial Pre Proc Eval Procedure: Operation Date: 09/13/24 12:00 Proposed Procedures p Repeat Section - Pb Sánchez MD Date/Time: 09/13/24 11:55 Surgeon: Pb Sánchez MD Pre Op Diagnosis: Repeat C/S Patient Data Age: 33 Gender: F Height: 1.57 m Weight: 86 kg Last Vital Signs Temp 36.6 C 09/13/24 10:52 Pulse 80 09/13/24 10:52 Resp 16 09/13/24 10:52 BP 121/63 09/13/24 10:52 O2 Del Method Room Air 09/13/24 10:52 Allergies Allergy/AdvReac Type Severity Reaction Status Date / Time Penicillins Allergy HIVES,TIGHT Verified 08/30/24 14:25 THROAT Sulfa (Sulfonamide Allergy HIVES Verified 08/30/24 14:25 Antibiotics) TIGHT THROAT Home Medications Medication Instructions Recorded Confirmed Type albuterol sulfate 90 mcg/actuation 2 puff inhalation QID PRN Wheezing 04/24/23 08/30/24 History aerosol inhaler prenat.vits,jonathon,uvf-yhpy-[id number] 1 tablet PO DAILY 04/24/23 08/30/24 History Laboratory Tests 09/13/24 10:31 HIV 1&2 Ab/P24 Ag 4thGn Negative (Negative) Patient hx anesthesia problems: none Family hx anesthesia problems: none Results Review: All pre-operative results and documents have been reviewed as part of the pre- operative evaluation. [facility] TO [facility] Past Medical History Medical History Asthma Eczema Irregular heart beat Migraine Surgical History Surgical History History of appendectomy History of delivery Family History Family History Sibling Neoplasm of brain in pediatric patient Seizures Social History Social History Smoking status: Never smoker Substance use: never Do You Feel Safe in your Home?: Yes Lack of Transportation: No Lack of Food: Never True Current Housing: I Have Housing Concerned About Future Housing: No Difficulty Paying Gas/Electric Bills: No Difficulty Paying for Meds: No Currently Unemployed: No Education: Associate Degree Difficulty w/ Childcare or Family Care: No Spiritual care concerns: No Anes - Eval Final PreProcedure Day of Procedure 09/13/24 11:55 Patient weight: obese Heart: regular rate and rhythm Lungs: clear to auscultation Airway: Mallampati scale class II Neurological: alert and oriented Last oral intake: >/= 8 hours ASA classification: II Emergent: no Anesthetic plan: proceed Anesthesia type and monitoring: regional spinal and standard monitoring Results Review: All pre-operative results and documents have been reviewed as part of the pre- operative evaluation. Informed Consent: The patient's anesthetic plan and its attendant risks and benefits were discussed with the patient/family/POA. Questions were solicited and answers provided to the satisfaction of the patient/family/POA.
--- NOTE | 2024-09-13 11:55 | P.PNAN_ITS ---
Anes - Initial Pre Proc Eval Procedure: Operation Date: 09/13/24 12:00 Proposed Procedures p Repeat Section - Pb Sánchez MD Date/Time: 09/13/24 11:55 Surgeon: bP Sánchez MD Pre Op Diagnosis: Previous c section Pre Op Diagnosis: Repeat C/S Patient Data Age: 33 Gender: F Height: 1.57 m Weight: 86 kg Last Vital Signs Temp 36.6 C 09/13/24 10:52 Pulse 80 09/13/24 10:52 Resp 16 09/13/24 10:52 BP 121/63 09/13/24 10:52 O2 Del Method Room Air 09/13/24 10:52 Allergies Allergy/AdvReac Type Severity Reaction Status Date / Time Penicillins Allergy HIVES,TIGHT Verified 08/30/24 14:25 THROAT Sulfa (Sulfonamide Allergy HIVES Verified 08/30/24 14:25 Antibiotics) TIGHT THROAT Home Medications Medication Instructions Recorded Confirmed Type albuterol sulfate 90 mcg/actuation 2 puff inhalation QID PRN Wheezing 04/24/23 08/30/24 History aerosol inhaler prenat.vits,jonathon,zuw-trjw-xsigl 1 tablet PO DAILY 04/24/23 08/30/24 History Laboratory Tests 09/13/24 10:31 HIV 1&2 Ab/P24 Ag 4thGn Negative (Negative) Patient hx anesthesia problems: none Family hx anesthesia problems: none Results Review: All pre-operative results and documents have been reviewed as part of the pre- operative evaluation. [facility] Past Medical History Medical History Asthma Eczema Irregular heart beat Migraine Surgical History Surgical History History of appendectomy History of delivery Family History Family History Sibling Neoplasm of brain in pediatric patient Seizures Social History Social History Smoking status: Never smoker Substance use: never Do You Feel Safe in your Home?: Yes Lack of Transportation: No Lack of Food: Never True Current Housing: I Have Housing Concerned About Future Housing: No Difficulty Paying Gas/Electric Bills: No Difficulty Paying for Meds: No Currently Unemployed: No Education: Associate Degree Difficulty w/ Childcare or Family Care: No Spiritual care concerns: No Anes - Eval Final PreProcedure Day of Procedure 09/13/24 11:55 Patient weight: overweight Heart: regular rate and rhythm Lungs: normal air movement Airway: Mallampati scale class II Neurological: alert and oriented Last oral intake: >/= 8 hours ASA classification: II Anesthetic plan: proceed Anesthesia type and monitoring: regional spinal and standard monitoring Results Review: All pre-operative results and documents have been reviewed as part of the pre- operative evaluation. Informed Consent: The patient's anesthetic plan and its attendant risks and benefits were discussed with the patient/family/POA. Questions were solicited and answers provided to the satisfaction of the patient/family/POA.
[2024-09-13] MEDS: ceFAZolin 2 GM/D5W 50 ML 2 GM/50 ML BAG IVPB (11:57)
--- NOTE | 2024-09-13 12:47 | W.PM.OBCSD ---
OB - Delivery Note Procedure Delivery date: 09/13/24 Pre-op diagnosis: Positive Group B Strep (GBS) and Previous Delivery Post-op Diagnosis: Same Induction method: None Delivery monitor: External FHT and External Uterine Procedure Performed: Repeat Surgeon: Pb Sánchez MD Anesthesia type: Spinal Description of Procedure/Findings: Findings: Normal-appearing uterus, tubes and ovaries. Techniques: The patient was taken to the operating room where she was prepared and draped in the usual sterile fashion in dorsal supine position with a leftward tilt. She received cefazolin preoperatively. Spinal anesthesia was found to be adequate. A Pfannenstiel skin incision was made along the previous scar line and was carried through to the underlying layer of the fascia. The fascia was incised in the midline and the incision was extended laterally. The fascia was dissected free of the underlying rectus muscles. The rectus muscles were in the midline. The peritoneum was identified, tented up and entered sharply. The peritoneal incision was extended superiorly and inferiorly with good visualization of the bladder. The bladder blade was placed. The vesicouterine peritoneum was identified, tented up and entered sharply. The incision was extended laterally and the bladder flap was developed. The bladder blade was replaced. The uterus was then incised sharply in a transverse fashion along the lower uterine segment. The incision was extended laterally. The was in transverse lie, with head on the maternal left. An internal cephalic version quickly guided the head to the incision. The head was delivered atraumatically to the sterile field, followed by the body. The nose and mouth were bulb suctioned. After a delay, the cord was clamped and cut. The was handed off the field. Cord blood was collected. The placenta was removed manually and was passed off the field. The uterus was exteriorized and cleared of all clots and debris. The uterine incision was reapproximated using 0 Monocryl in a running, locked fashion. Excellent hemostasis resulted as did excellent reapproximation of the normal anatomy. The uterus was returned the abdomen. The pelvis was irrigated copiously with warmed normal saline. Rigorous hemostasis was assured. The fascial layer was reapproximated using 0 Vicryl in a running fashion. The skin was closed with a running, subcuticular stitch of 4 0 Vicryl. Dermaflex was applied externally. Sponge, lap, needle and instrument counts were correct. The patient was taken to the recovery room in stable condition. The went to the nursery in stable condition. I was present and scrubbed the entire procedure. Specimen: Yes (cord blood) Estimated Blood Loss: 260 Drains: Yes (ansari) Packing: No Pathology: Yes (cord blood) Complications: None Condition: Stable Disposition: PACU [place] Baby Date of : 09/13/24 Time of : 12:24 Gestational Age by Date: 39 gender: Male Weight (pounds): 8 Weight (ounces): 4 presentation: transverse Placenta delivery description: Manual Removal and Normal Configuration Cord Vessel Description: 3 Vessels and Delayed Cord Clamping score one minute: 8 score five minutes: 9
--- NOTE | 2024-09-13 12:51 | PM.OBDSVD ---
DS: Admitting Diagnosis Admitting Diagnosis IUP at 39 3/7 weeks Prior GBS bacteruria DS: Discharge Diagnosis Discharge Diagnosis (1) delivery delivered: Code(s): O82 - Encounter for delivery without indication Status: Acute (2) GBS (group B streptococcus) UTI complicating : Code(s): O23.40 - Unspecified infection of urinary tract in , unspecified trimester; B95.1 - Streptococcus, group B, as the cause of diseases classified elsewhere Status: Acute OB - DS: Summary OB Procedures : None OB Procedures Intrapartum: OB Procedures: : None Peripartum Data Procedures: Procedures Operation Date: 09/13/24 12:00 <No data on this case meets the specified criteria> Time Spent with Patient Time attestation: Total time spent providing and/or coordinating discharge services: DS: Data Data Completed and Pending Labs on day of discharge: Labs from last 24 hours 09/13/24 10:31 HIV 1&2 Ab/P24 Ag 4thGn Negative Discharge Plan Discharge Attending physician on discharge: Pb Sánchez Discharging Clinician: Pb Sánchez Patient Disposition: Home, Self-Care Activity: may shower, may drive after 2 weeks and pelvic rest Diet: regular Wound Care Instructions: incision open to air Discharge Instructions: Call or return if temperature above 100.4? F, increased abdominal pain, increased vaginal bleeding or any new problems. Stand Alone Forms: General Discharge Information Follow-up/Referrals: Pb Sánchez MD [Physician] - 4 Weeks Discharge Medications: New ibuprofen 600 mg tablet 600 mg PO Q6H PRN (Reason: cramps) Qty: 30 0RF oxycodone-acetaminophen [Percocet] 5-325 mg tablet 1 - 2 tablet PO Q6H PRN (Reason: pain) Qty: 30 0RF Continued prenat.vits,jonathon,hue-jrip-pnlsg Tablet 1 tablet PO DAILY albuterol sulfate 90 mcg/actuation Hfa Aerosol Inhaler 2 puff INHALATION QID PRN (Reason: Wheezing) Date of admission: 09/13/24 10:11 Primary Care Provider: RitoDelio Admitting Provider: Pb Sánchez Attending physician on admission: Pb Sánchez Condition: Stable
[2024-09-13] MEDS: LIDOCAINE 5% PATCH 1 PATCH (14:00)
[2024-09-13] MEDS: OXYTOCIN 30 UNITS/NS 500 ML 30 UNITS/500 ML BAG 125 UNITS IV CONT (14:00)
[2024-09-13] MEDS: DOCUSATE SODIUM 100 MG CAPSULE PO (15:44)
[2024-09-13] MEDS: SIMETHICONE 80 MG TAB.CHEW PO (15:44)
[2024-09-13] MEDS: KETOROLAC 15 MG/ML VIAL (*BKC) IV PUSH ×2 (16:53→22:58)
[2024-09-13] MEDS: ACETAMINOPHEN 325 MG TABLET 650 MG PO ×2 (16:55→22:58)
--- NOTE | 2024-09-13 17:27 | OBPPTRN ---
Patient transferred to post room #280 via (bed ). Support person present. Oriented to unit, room, information board, rooming in, admission packet and security measures. Patient verbalizes understanding.
[2024-09-13] MEDS: DEXTROSE 5%/0.45% SOD CHL 1,000 ML 125 ML IV CONT (17:55)
--- NOTE | 2024-09-13 17:59 | PC.NURSE ---
1530. Consulted with patient to assess needs related to . Discussed with mother her successes, concerns and any questions she has. Mom reports she breastfed her first child until she was 15 months old. Mom reports that so far the infant has latched and fed with no issues. Encouraged understanding the benefits of skin to skin, responding to feeding cues, frequencies of feeding 8-12 times in 24 hours (approximately 2-3 hours), duration of feedings, milk production, intake/output feeding sheet and signs of adequate intake encouraging swallowing at the breast. Mother independently latched Infant latched optimally to the right breast in cross cradle position. Education given to the mother of how to visualize the suckling (with good rocking jaw motion) swallows (dropping of the lower jaw) and how to listen for drinking at the breast (the ka sound). The infant was able to maintain latch without discomfort to mother. Nipple care reviewed with optimal latch, good positioning and using clean hands when touching her breast. Mother voiced understanding of the education shared, to call for assistance if the does not latch or if there is discomfort with . Reported to the Primary RN.
[2024-09-14 04:28] VITALS: BP 102/65; PULSE 74; RESP 12; TEMP 36.7; O2SAT 98
[2024-09-14] MEDS: KETOROLAC 15 MG/ML VIAL (*BKC) IV PUSH (04:52)
[2024-09-14] MEDS: ACETAMINOPHEN 325 MG TABLET 650 MG PO ×3 (04:52→17:10)
[2024-09-14 05:20] LABS: Basophils Percent Auto 0.4 % (0.2-1.2); Eosinophils Absolute Auto 0.2 K/mm3 (0-0.3); Eosinophils Percent Auto 1.6 % (0-4.4); Hemoglobin 9.4 g/dL (12.0-15.0); Immature Granulocyte Absolute 0.05 K/mm3 (0.00-0.031); Immature Granulocyte Percent A 0.5 % (0-0.5); Lymphocytes Absolute Auto 2.57 K/mm3 (0.9-3.2); Lymphocytes Percent Auto 25.4 % (18.3-44.2); Mean Corpuscular HGB Conc 32.4 g/dl (32-36); Mean Corpuscular Hemoglobin 28.4 pg (26-34); Mean Corpuscular Volume 87.6 fl (80-100); Mean Platelet Volume 10.4 fl (7.4-10.4); Monocytes Absolute Auto 0.7 K/mm3 (0.1-0.6); Monocytes Percent Auto 6.8 % (2.6-8.5); Neutrophils Absolute Auto 6.6 K/mm3 (1.3-6.7); Neutrophils Percent Auto 65.3 % (45.5-73.1); Platelet Count Result 265 k/mm3 (150-375); Red Blood Count 3.31 M/mm3 (4.2-5.4); Red Cell Distribution Width 13.5 % (11.5-14.5); White Blood Count 10.1 K/mm3 (4.5-10.0)
[2024-09-14] MEDS: MULTIVIT/MIN/PREN/FOL AC/IRON TABLET 1 TAB PO (06:51)
[2024-09-14] MEDS: SIMETHICONE 80 MG TAB.CHEW PO ×3 (06:51→17:10)
[2024-09-14] MEDS: POLYSACCHARIDE IRON COMPLEX 150 MG CAPSULE PO ×2 (06:51→17:10)
[2024-09-14] MEDS: HYDROcodone/acetaminophen (*CRX) 5-325 MG TABLET 1 TAB PO (06:51)
[2024-09-14] MEDS: DOCUSATE SODIUM 100 MG CAPSULE PO ×2 (06:52→17:10)
[2024-09-14 07:25] VITALS: BP 96/57; PULSE 79; RESP 16; O2SAT 98
--- NOTE | 2024-09-14 07:35 | PC.NURSE ---
Consulted with patient to assess needs related to . Mother expressed that she has been able to independently latch without issues. We reviewed working with the , supporting breast, protecting her nipples with an optimal deep latch, good positioning, and good hand washing. Encouraged understanding the benefits of skin to skin, responding to feeding cues, frequencies of feeding 8-12 times in 24 hours (approximately 2-3 hours), duration of feedings, milk production, intake/output feeding sheet and signs of adequate intake encouraging swallowing at the breast. Reviewed positioning and alignment, supporting breast, off-centered (asymmetrical latch) and leading with the chin with big, open, wide gape. Education given to the mother of how to visualize the suckling (with good rocking jaw motion) swallows (dropping of the lower jaw) and how to listen for drinking at the breast (the ka sound). No latch was onbserved at this time. Nipple care reviewed with optimal latch, good positioning and using clean hands when touching her breast. Resources used to facilitate learning were used from the handouts. Mother voiced understanding of the education shared, to call for assistance if the infant does not latch or if there is discomfort with . Reported to the Primary RN.
--- NOTE | 2024-09-14 10:01 | WPDANLDPN2 ---
Anes-Prog Note L&D Date/Time: 09/14/24 10:01 Comfortable throughout: section Neuraxial method: spinal Epidural/Spinal procedure site: clean & non-tender Neuro status: Neuro function grossly intact. Cardiovascular status: normal Respiratory status: normal Airway patency: baseline Mental status: baseline Post-Op hydration status: normal Vital Signs: Last Vital Signs Temp 36.7 C 09/14/24 04:28 Pulse 79 09/14/24 07:25 Resp 16 09/14/24 07:25 BP 96/57 L 09/14/24 07:25 Pulse Ox 98 09/14/24 07:25 O2 Del Method Room Air 09/14/24 07:30 Pain score (VAS): 1 I/O: Intake & Output 09/13/24 09/14/24 09/14/24 23:59 07:59 15:59 Intake Total 600 1100 Output Total 200 1750 Balance 400 -650 Post-procedural complaints: none Patient feedback: Patient satisfied with anesthetic care.
[2024-09-14] MEDS: IBUPROFEN 600 MG TABLET PO ×2 (11:51→17:10)
[2024-09-14 12:17] VITALS: BP 96/64; PULSE 65; RESP 16; TEMP 36.7; O2SAT 97
[2024-09-14] MEDS: HYDROcodone/acetaminophen (*CRX) 10-325 MG TABLET 1 TAB PO ×2 (14:03→19:50)
--- NOTE | 2024-09-14 16:02 | PM.OBPNVD ---
OB - PN: Subj Subjective Date/time seen: 09/14/24 16:02 Narrative: Pain OK. Tolerating diet. Would like circumcision for son. OB - PN: Obj Data Labs 09/14/24 04:40 Labs: Laboratory Results - last 24 hr 09/14/24 04:40 WBC 10.1 H RBC 3.31 L Hgb 9.4 L Hct 29.0 L MCV 87.6 MCH 28.4 MCHC 32.4 RDW 13.5 Plt Count 265 MPV 10.4 Immature Gran % (Auto) 0.5 Neut % (Auto) 65.3 Lymph % (Auto) 25.4 [place] % (Auto) 6.8 Eos % (Auto) 1.6 Baso % (Auto) 0.4 Lymph # (Auto) 2.57 [place] # (Auto) 0.7 H Eos # (Auto) 0.2 Baso # (Auto) 0.0 Abs Immat Gran (auto) 0.05 H Absolute Neuts (auto) 6.6 Absolute Nucleated RBC 0.000 Nucleated RBC % 0.0 OB - PN A/P Plan day: 1 Comments: A: POD#1, doing well. P: Reviewed circ. Routine care. Exam Narrative: AVSS I/O OK ABD soft, nontender, fundus firm. Incision c/d/i. EXT nontender
[2024-09-14] MEDS: LIDOCAINE 5% PATCH 1 PATCH TRANSDERM (17:09)
[2024-09-14 21:00] VITALS: BP 101/64; PULSE 74; RESP 16; TEMP 36.9; O2SAT 99
[2024-09-15] MEDS: ACETAMINOPHEN 325 MG TABLET 650 MG PO ×4 (00:22→19:30)
[2024-09-15] MEDS: IBUPROFEN 600 MG TABLET PO ×4 (02:54→21:04)
[2024-09-15] MEDS: SIMETHICONE 80 MG TAB.CHEW PO ×3 (07:15→15:03)
[2024-09-15] MEDS: DOCUSATE SODIUM 100 MG CAPSULE PO ×2 (07:15→15:03)
[2024-09-15] MEDS: POLYSACCHARIDE IRON COMPLEX 150 MG CAPSULE PO ×2 (07:15→15:03)
[2024-09-15] MEDS: MULTIVIT/MIN/PREN/FOL AC/IRON TABLET 1 TAB PO (07:15)
[2024-09-15 08:15] VITALS: BP 103/68; PULSE 78; RESP 16; TEMP 37.2; O2SAT 98
[2024-09-15] MEDS: HYDROcodone/acetaminophen (*CRX) 10-325 MG TABLET 1 TAB PO (11:11)
--- NOTE | 2024-09-15 13:20 | PM.OBPNVD ---
OB - PN: Subj Subjective Date/time seen: 09/15/24 13:20 Narrative: Pain OK. Tolerating diet. OB - PN: Obj Data Labs 09/14/24 04:40 OB - PN A/P Plan day: 2 Comments: A: POD#2, doing well. P: Routine care. Exam Narrative: AVSS I/O OK ABD soft, nontender, fundus firm. Incision c/d/i. EXT nontender
--- NOTE | 2024-09-15 14:19 | PC.NURSE ---
Mother verbalizes she is able to independently latch with appropriate positioning and alignment. She denies any nipple discomfort and is responsively . Infant is currently meeting outcomes for weight, output, jaundice, blood sugar and feeding frequencies of 8-12 times in 24 hours. Mother declines any additional assistance or education at this time. Mother is encouraged to call for assistance if her infant doesn?t latch, pain with latching, questions or concerns. Mother voiced understanding of information shared along with the mom/baby guide for an additional resource. Reported to the Primary RN.
[2024-09-15 19:30] VITALS: BP 119/75; PULSE 76; RESP 18; TEMP 36.8; O2SAT 99
[2024-09-15] MEDS: LIDOCAINE 5% PATCH 1 PATCH TRANSDERM (19:30)
[2024-09-16] MEDS: ACETAMINOPHEN 325 MG TABLET 650 MG PO ×2 (01:30→07:43)
[2024-09-16] MEDS: IBUPROFEN 600 MG TABLET PO ×2 (04:00→10:46)
--- NOTE | 2024-09-16 07:02 | PM.OBPNVD ---
OB - PN: Subj Subjective Date/time seen: 09/16/24 07:02 Patient comments: no complaints and pain well controlled baby status: doing well and nursing well OB - PN: Obj Data Labs 09/14/24 04:40 OB - PN A/P Plan day: 3 Plan: routine care, discharge home and follow up 6 weeks (4) Time Spent With Patient Time: Total time spent is greater than 50% in coordination of care (as documented) at patient's floor/unit and/or counseling patient: Time with patient: less than 15 minutes Exam Const: General: cooperative, healthy appearing and comfortable Nutritional Appearance: average body habitus Orientation/consciousness: oriented to person, oriented to place and oriented to time Resp: Effort & Inspection: normal respiratory effort Cardio: Rate: regular rate Rhythm: regular rhythm Heart sounds: S1 normal heart sound present and S2 normal heart sound present GI: Inspection: normal to inspection and incision (cdi)
[2024-09-16 07:20] VITALS: BP 111/77; PULSE 79; RESP 16; TEMP 36.8; O2SAT 98
[2024-09-16] MEDS: SIMETHICONE 80 MG TAB.CHEW PO ×2 (07:42→11:59)
[2024-09-16] MEDS: POLYSACCHARIDE IRON COMPLEX 150 MG CAPSULE PO (07:43)
[2024-09-16] MEDS: MULTIVIT/MIN/PREN/FOL AC/IRON TABLET 1 TAB PO (07:43)
--- NOTE | 2024-09-16 08:39 | PC.NURSE ---
Consulted with mother concerning needs and she shared her ability to independently latch infant optimally without pain. Mother is feeding appropriately for growth of and understands stimulating to eat if needed. Infant has had appropriate feedings in the last 24 hours meets the outcomes for weight, output, blood sugar and jaundice at this time. Reinforced understanding of milk production, transition of milk, signs of adequate intake, transition of stool, prevention/relief of engorgement, plugged ducts, mastitis, responsive watching for feeding cues, the different methods of stimulating to breastfeed 1-3 hours after the start of the last feeding, community resources, and when to call a provider using the resource of the feeding sheet along with the mom and baby guide. Mother voiced understanding of the information shared, is confident to continue effectively her infant at home, when to call for assistance, denies any additional assistance or education at this time.
--- NOTE | 2024-09-16 09:37 | PC.NURSE ---
Patient viewed the discharge video Mother & Baby Care, The First Two Weeks . Patient was given the opportunity and encouraged to ask questions. Patient verbalized understanding of information shared and has been given the mother/baby guide for home reference.
[2024-09-16] MEDS: HYDROcodone/acetaminophen (*CRX) 5-325 MG TABLET 1 TAB PO (11:59)
[2024-09-17 08:24] VITALS: BP 104/86; PULSE 86; RESP 18; TEMP 36.4; O2SAT 100
== END 2024-09-16 12:46 | disposition home or self-care (01) | DRG 788 ==
LOC: ANHLDR 12:53 → ANHOB2 09-16 09:09 → ANHLDR 09-19 08:05 → ANHOB2 09-19 08:05
PROVIDERS: Admitting Provider Obstetrics & Gynecology; PCP Internal Medicine; Visit Provider Obstetrics & Gynecology
PROC: 10D00Z1 Extraction of Products of Conception, Low, Open Approach (ICD-10-PCS; CPT 59514; principal; 2024-09-13 12:00)
DX: O34.219 Maternal care for unspecified type scar from previous cesarean delivery (principal); O99.824 Streptococcus B carrier state complicating childbirth; Z90.49 Acquired absence of other specified parts of digestive tract; Z88.0 Allergy status to penicillin; Z3A.39 39 weeks gestation of pregnancy; Z37.0 Single live birth
CPT/HCPCS: 36415; 85025; 86703; A9270; G0432; J0690; J1885; J2003; J2274; J2405; J2590; J7120